=== PATIENT | female | born 1950 | race Caucasian/White ===

== ENCOUNTER 2017-06-28 16:26 | Outpatient (CLI) | payer MEDICARE, OTHER | END 2017-06-28 16:27 | disposition short-term general hospital (02) | LOC: EMS 16:26 | PROVIDERS: ATTEND Surgery | DX: M25.552 Pain in left hip (principal); W18.30XA Fall on same level, unspecified, initial encounter; Y92.480 Sidewalk as the place of occurrence of the external cause | CPT/HCPCS: A0170; A0425; A0427 ==